=== PATIENT | male | born 1945 | race Caucasian/White ===

== ENCOUNTER 2020-03-14 11:05 | Emergency (ER) | payer MEDICARE, OTHER ==
[~2020-03-14] VITALS: Ht 170.2 cm; Wt 76.0 kg
--- NOTE | 2020-03-14 11:49 | NUR ---
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
[2020-03-14] MEDS ORDERED: FAMOTIDINE 20 MG/2 ML IVPush ONE (12:00)
[2020-03-14] MEDS ORDERED: SODIUM CHLORIDE FLUSH 10ML SYR IVF ONE (12:00)
[2020-03-14] MEDS ORDERED: MORPHINE SULFATE 4 MG/ML, 1ML IVPush PRN (12:00)
[2020-03-14] MEDS ORDERED: PROMETHAZINE 25 MG/ML, 1ML IM ONE (12:00)
[2020-03-14] MEDS ORDERED: PROMETHAZINE 25 MG/ML, 1ML ONE (12:18)
[2020-03-14] MEDS ORDERED: MORPHINE SULFATE 4 MG/ML, 1ML ONE (12:18)
[2020-03-14] MEDS ORDERED: FAMOTIDINE 20 MG/2 ML ONE (12:19)
[2020-03-14 12:34] LABS: BASOPHILS # (AUTO) 0.01 x10^3/uL (0-0.1); BASOPHILS % (AUTO) 0 % (0-1); EOSINOPHILS # (AUTO) 0.06 x10^3/uL (0-0.4); EOSINOPHILS % (AUTO) 0 % (1-7); LYMPHOCYTES # (AUTO) 1.08 x10^3/uL (1-3.4); LYMPHOCYTES % (AUTO) 8 % (22-44); MD NO; MEAN CORPUSCULAR HEMOGLOBIN 30.4 pg (27.5-34.5); MEAN CORPUSCULAR HGB CONC 32.4 g/dL (33.2-36.2); MEAN PLATELET VOLUME 9.8 fL (7.4-10.4); MONOCYTES # (AUTO) 0.84 x10^3/uL (0.2-0.8); MONOCYTES % (AUTO) 6 % (2-9); NEUTROPHILS # (AUTO) 11.15 x10^3/uL (1.8-6.8); NEUTROPHILS % (AUTO) 85 % (42-75); PLATELET COUNT 179 x10^3/uL (130-400); RED BLOOD COUNT 4.51 x10^6/uL (4.38-5.82); RED CELL DISTRIBUTION WIDTH 15.1 % (9.4-14.8)
[2020-03-14 12:46] LABS: ANION GAP 5 mmol/L (5-15); CHLORIDE 108 mmol/L (98-107)
[2020-03-14 12:51] LABS: ALANINE AMINOTRANSFERASE 34 U/L (12-78); ALKALINE PHOSPHATASE 50 U/L (45-117); CREATININE 1.02 mg/dL (0.7-1.3); TOTAL PROTEIN 7.6 g/dL (6.4-8.2); TROPONIN I < 0.015 ng/mL (0.000-0.045)
[2020-03-14 12:52] LABS: BILIRUBIN,TOTAL 0.7 mg/dL (0.2-1.0)
--- NOTE | 2020-03-14 13:02 | NUR ---
PT UPRIGHT ON GURNEY AWAKE & C/O ABD PAIN- MEDICATED PER EMAR, RESPONDS APPROP TO STAFF, COMFORT MEASURES PROVIDED, AT BS, CALL LIGHT WITHIN REACH.
--- NOTE | 2020-03-14 14:05 | NUR ---
PT COMFORTABLY SLEEPING ON GURNEY, EQUAL CHEST RISE/FALL, VSS, NO NEEDS AT THIS TIME, AT BS, CALL LIGHT WITHIN REACH, AWAITING CT.
[2020-03-14 14:20] LABS: MICROSCOPIC AUTO
--- NOTE | 2020-03-14 14:30 | NUR ---
PT TO CT
[2020-03-14] MEDS ORDERED: OMNIPAQUE 350 MG/ML, 100ML BOTTLE ONE (14:44)
--- NOTE | 2020-03-14 15:04 | NUR ---
PT UPRIGHT ON GURNEY AWAKE & C/O ABD PAIN BUT "A LITTLE BETTER AFTER MEDICINE", PT ABLE TO FALL SLEEP, RESPONDS APPROP TO STAFF, COMFORT MEASURES PROVIDED, AT BS, CALL LIGHT WITHIN REACH. PT UPDATED ON POC BY DR STEEN.
[2020-03-14 15:05] VITALS: BP 158/92
[2020-03-14] MEDS ORDERED: KETOROLAC 30 MG/1 ML IVPush ONE (15:30)
[2020-03-14] MEDS ORDERED: KETOROLAC 30 MG/1 ML ONE (15:32)
== END 2020-03-14 16:18 | disposition home or self-care (01) ==
LOC: ED 11:54
DX: N20.1 Calculus of ureter (principal); R10.12 Left upper quadrant pain; R10.11 Right upper quadrant pain; R42 Dizziness and giddiness; I10 Essential (primary) hypertension; I49.3 Ventricular premature depolarization
CPT/HCPCS: 36415; 71045; 74177; 76700; 80053; 81001; 83690; 83880; 84484; 85025; 93005; 96372; 96374; 96375; 99285; J1885; J2270; J2550; J3490; Q9967